=== PATIENT | female | born 1935 | race Caucasian/White ===

== ENCOUNTER 2018-04-16 16:53 | Emergency (ER) | payer MEDICARE, OTHER ==
[~2018-04-16] VITALS: Ht 165.1 cm; Wt 65.9 kg
[2018-04-16 17:49] LABS: BASOPHILS % (AUTO) 0.1 % (0-1); EOSINOPHILS % (AUTO) 0.1 % (0-6); HEMATOCRIT 40.7 % (35.0-45.0); HEMOGLOBIN 13.4 g/dl (12.0-16.0); LYMPHOCYTES # (AUTO) 0.8 X10'3 (1.1-4.8); LYMPHOCYTES % (AUTO) 7.6 % (21-51); MEAN CORPUSCULAR HEMOGLOBIN 28.2 PG (27.0-31.0); MEAN CORPUSCULAR HGB CONC 32.8 % (33.0-36.5); MEAN CORPUSCULAR VOLUME 85.8 FL (78-98); MEAN PLATELET VOLUME 8.3 FL (7.4-10.4); MONOCYTES # (AUTO) 0.4 X10'3 (0-0.9); NEUTROPHILS # (AUTO) 8.8 X10'3 (1.8-7.7); NEUTROPHILS % (AUTO) 88.2 % (42-75); PLATELET COUNT 224 X10'3 (140-440); RED BLOOD COUNT 4.74 X10'6 (4.20-5.60); RED CELL DISTRIBUTION WIDTH 13.9 % (11.5-14.5)
[2018-04-16 17:51] LABS: CLARITY,URINE CLOUDY (Clear); COLOR,URINE YELLOW (Yellow); GLUCOSE, URINE NEGATIVE (Neg); KETONES,URINE TRACE mg/dl (Neg); LEUKOCYTE ESTERASE ,URINE MODERATE (Neg); NITRITES, URINE POSITIVE (Neg); OCCULT BLOOD,URINE LARGE (Neg); PROTEIN,URINE >=300 mg/dl (Neg); UA COLLECTION TYPE CLN CATCH MIDSTREAM
[2018-04-16] MEDS ORDERED: normal saline 1000ML IV soln IVB ONE (17:55)
[2018-04-16] MEDS ORDERED: ondansetron/PF 4mg/2ml inj IV ONE (17:55)
[2018-04-16 17:58] LABS: PROTHROMBIN TIME 10.1 SECONDS (9.0-12.0)
[2018-04-16 18:01] LABS: BACTERIA,URINE 4+ /HPF (Neg); MUCUS STRANDS NONE SEEN /LPF (Neg); RBC,URINE 20-50 /HPF (0-2); RENAL CELLS, URINE FEW /HPF; SQUAMOUS EPITHELIAL CELL,UR FEW /LPF (FEW); TRANSITIONAL EPI CELLS,URINE FEW /HPF; WBC CLUMPS,URINE MANY /HPF (NEGATIVE); WBC,URINE TNTC /HPF (0-4)
[2018-04-16 18:10] LABS: TOTAL CELLS COUNTED 100
[2018-04-16 18:11] LABS: PLATELET ESTIMATE NORMAL
[2018-04-16] MEDS ORDERED: CefTRIAXone 2gm/D5W 50ml 50 ML IV ONE (18:15)
[2018-04-16 18:16] LABS: ALANINE AMINOTRANSFERASE 48 U/L (12-78); ALBUMIN/GLOBULIN RATIO 0.7 (1.1-1.5); ALKALINE PHOSPHATASE 87 IU/L (46-116); AMYLASE 33 U/L (25-115); ANION GAP 9 (8-16); ASPARTATE AMINO TRANSFERASE 63 U/L (10-37); BILIRUBIN,TOTAL 0.9 MG/DL (0.1-1.0); BLOOD UREA NITROGEN 16 MG/DL (7-18); BUN/CREATININE RATIO 12.9 (6.6-38.0); CHLORIDE 100 MMOL/L (99-107); CREATININE 1.24 MG/DL (0.40-0.90); GLUCOSE 131 MG/DL (70-104); LIPASE 73 U/L (73-393); POTASSIUM 3.8 MMOL/L (3.5-5.1); SODIUM 136 MMOL/L (135-145); TOTAL CARBON DIOXIDE 26.8 MMOL/L (24-32); TOTAL PROTEIN 7.4 G/DL (6.4-8.2); eGFR 41 ML/MIN
[2018-04-16] MEDS ORDERED: DIPH25CA83 PO (18:20)
[2018-04-16] MEDS ORDERED: MULT-38 PO (18:20)
[2018-04-16] MEDS ORDERED: CLOP75TA35 PO (18:20)
[2018-04-16] MEDS ORDERED: DOXE10CA2 PO (18:20)
[2018-04-16] MEDS ORDERED: SYN0.088T PO (18:20)
[2018-04-16] MEDS ORDERED: MAGN500C16 PO (18:20)
[2018-04-16] MEDS ORDERED: EZET10TA14 PO (18:20)
[2018-04-16] MEDS ORDERED: CHOL2000 PO (18:20)
[2018-04-16] MEDS ORDERED: ATOR20TA PO (18:20)
[2018-04-16] MEDS ORDERED: SERT25TA PO (18:20)
[2018-04-16] MEDS ORDERED: nitrofuran/nitrofuran macrocrysal 100 MG capsule PO ONE (18:50)
[2018-04-16] MEDS ORDERED: NITR100C6 PO (18:51)
[2018-04-16] MEDS ORDERED: ONDA4TAB6 PO (18:51)
[2018-04-16 19:43] VITALS: BP 139/65
== END 2018-04-16 20:06 | disposition home or self-care (01) ==
LOC: ER 16:54
DX: E86.0 Dehydration (principal); N39.0 Urinary tract infection, site not specified; R11.2 Nausea with vomiting, unspecified; E78.00 Pure hypercholesterolemia, unspecified; Z86.73 Personal history of transient ischemic attack (TIA), and cerebral infarction without residual deficits; Z90.89 Acquired absence of other organs; Z98.890 Other specified postprocedural states; Z79.01 Long term (current) use of anticoagulants; Z79.899 Other long term (current) drug therapy
CPT/HCPCS: 36415; 80053; 81001; 82150; 83605; 83690; 84145; 85025; 85610; 87040; 87077; 87088; 87186; 96361; 96365; 96375; 99284; J0696; J2405; J7030; 96374

== ENCOUNTER 2018-08-01 16:46 | Inpatient (IN) | payer MEDICARE, OTHER ==
[~2018-08-01] VITALS: Ht 165.1 cm; Wt 69.7 kg
[~2018-08-01 16:46] MED LIST: ATOR20TA PO; CHOL2000 PO; CLOP75TA35 PO; DIPH25CA83 PO; DOXE10CA2 PO; EZET10TA14 PO; MAGN500C16 PO; MULT-38 PO; NITR100C6 PO; ONDA4TAB6 PO; SERT25TA PO; SYN0.088T PO
[2018-08-01 17:22] LABS: BASOPHILS % (AUTO) 0.4 % (0-1); EOSINOPHILS # (AUTO) 0.3 X10'3 (0-0.9); EOSINOPHILS % (AUTO) 3.3 % (0-6); HEMOGLOBIN 11.9 g/dl (12.0-16.0); LYMPHOCYTES % (AUTO) 26.6 % (21-51); MEAN CORPUSCULAR HEMOGLOBIN 27.1 PG (27.0-31.0); MEAN CORPUSCULAR HGB CONC 32.1 % (33.0-36.5); MEAN CORPUSCULAR VOLUME 84.3 FL (78-98); MEAN PLATELET VOLUME 8.3 FL (7.4-10.4); MONOCYTES # (AUTO) 0.6 X10'3 (0-0.9); MONOCYTES % (AUTO) 8.3 % (2-12); NEUTROPHILS # (AUTO) 4.7 X10'3 (1.8-7.7); NEUTROPHILS % (AUTO) 61.4 % (42-75); PLATELET COUNT 280 X10'3 (140-440); RED BLOOD COUNT 4.39 X10'6 (4.20-5.60); RED CELL DISTRIBUTION WIDTH 14.5 % (11.5-14.5); WHITE BLOOD COUNT 7.7 X10'3 (4.5-11.0)
[2018-08-01 17:39] LABS: ALANINE AMINOTRANSFERASE 49 U/L (12-78); ALBUMIN 3.6 G/DL (3.4-5.0); ALKALINE PHOSPHATASE 57 IU/L (46-116); ANION GAP 10 (8-16); ASPARTATE AMINO TRANSFERASE 23 U/L (10-37); BILIRUBIN,TOTAL 0.4 MG/DL (0.1-1.0); BLOOD UREA NITROGEN 24 MG/DL (7-18); BUN/CREATININE RATIO 23.5 (6.6-38.0); CALCIUM 9.1 MG/DL (8.5-10.1); CHLORIDE 107 MMOL/L (99-107); CREATININE 1.02 MG/DL (0.40-0.90); GLUCOSE 113 MG/DL (70-104); POTASSIUM 4.1 MMOL/L (3.5-5.1); SODIUM 142 MMOL/L (135-145); TOTAL CARBON DIOXIDE 25.3 MMOL/L (24-32); TOTAL PROTEIN 7.1 G/DL (6.4-8.2); eGFR 52 ML/MIN
[2018-08-01 17:57] LABS: PARTIAL THROMBOPLASTIN TIME 25 SECONDS (22-32); PROTHROMBIN TIME 10.1 SECONDS (9.0-12.0)
[2018-08-01] MEDS ORDERED: ondansetron/PF 4mg/2ml inj IV ONE (18:15)
[2018-08-01] MEDS ORDERED: DEXA0.5E6 (18:27)
[2018-08-01 18:43] LABS: MAGNESIUM 2.2 MG/DL (1.5-2.4)
[2018-08-01] MEDS: normal saline 1000ml 1,000 ML IV SCH (23:12)
[2018-08-01] MEDS ORDERED: mag hydrox/Alum hydrox/simeth 30ml oral suspension PO PRN (23:15)
[2018-08-01] MEDS ORDERED: magnesium hydroxide 30ml (MOM) UD suspension PO PRN (23:15)
[2018-08-01] MEDS ORDERED: acetaminophen 325mg tablet PO PRN ×2 (23:15)
[2018-08-01] MEDS ORDERED: ondansetron/PF 4mg/2ml inj IV PRN (23:15)
[2018-08-02] VITALS (13 sets, daily range): BP systolic 128–183; BP diastolic 43–72
[2018-08-02 06:08] LABS: BASOPHILS % (AUTO) 0.3 % (0-1); EOSINOPHILS # (AUTO) 0.2 X10'3 (0-0.9); EOSINOPHILS % (AUTO) 3.5 % (0-6); HEMATOCRIT 32.6 % (35.0-45.0); LYMPHOCYTES # (AUTO) 2.3 X10'3 (1.1-4.8); LYMPHOCYTES % (AUTO) 36.8 % (21-51); MEAN CORPUSCULAR HEMOGLOBIN 28.3 PG (27.0-31.0); MEAN CORPUSCULAR HGB CONC 33.6 % (33.0-36.5); MEAN PLATELET VOLUME 8.3 FL (7.4-10.4); MONOCYTES # (AUTO) 0.5 X10'3 (0-0.9); MONOCYTES % (AUTO) 8.6 % (2-12); NEUTROPHILS # (AUTO) 3.2 X10'3 (1.8-7.7); NEUTROPHILS % (AUTO) 50.8 % (42-75); PLATELET COUNT 236 X10'3 (140-440); RED BLOOD COUNT 3.88 X10'6 (4.20-5.60); RED CELL DISTRIBUTION WIDTH 14.2 % (11.5-14.5); WHITE BLOOD COUNT 6.4 X10'3 (4.5-11.0)
[2018-08-02 06:18] LABS: ALBUMIN 3.1 G/DL (3.4-5.0); ANION GAP 8 (8-16); BLOOD UREA NITROGEN 22 MG/DL (7-18); CALCIUM 8.4 MG/DL (8.5-10.1); CHLORIDE 111 MMOL/L (99-107); CREATININE 1.05 MG/DL (0.40-0.90); GLUCOSE 92 MG/DL (70-104); POTASSIUM 4.2 MMOL/L (3.5-5.1); SODIUM 145 MMOL/L (135-145); eGFR 50 ML/MIN
[2018-08-02] MEDS ORDERED: ceFAZolin inj. 2,000 MG in dextrose 5%-water 50ml 50 ML IV ONE (06:50)
[2018-08-02] MEDS: ezetimibe 10mg tablet PO SCH (08:59)
[2018-08-02] MEDS: sertraline 50mg tablet PO SCH (09:00)
[2018-08-02] MEDS: levoTHYROXINE 25mcg tablet PO SCH (09:00)
[2018-08-02] MEDS: levoTHYROXINE 112mcg tablet PO SCH (09:00)
[2018-08-02] MEDS: normal saline 1000ml 1,000 ML IV SCH ×2 (09:02→19:12)
[2018-08-02] MEDS ORDERED: ceFAZolin 1GM/D5W- ADD-VANTAGE 50 ML IV ONE (17:57)
[2018-08-02] MEDS ORDERED: ceFAZolin 1000mg inj ONE (17:58)
[2018-08-02] MEDS ORDERED: fentaNYL/PF 50MCG/1 ML 2ML syringe ONE (17:58)
[2018-08-02] MEDS ORDERED: midazolam 2 mg/2 ml injection ONE (17:58)
[2018-08-02] MEDS ORDERED: LIDOcaine 1.5% w/epinephrine 1:200,000 5ml ampul ONE ×4 (17:58→18:32)
[2018-08-02] MEDS ORDERED: HYDROcodone/acetaminophen 5mg/325mg tablet PO PRN (20:15)
[2018-08-02] MEDS ORDERED: HYDROcodone/acetaminophen 10/325mg tab PO PRN (20:15)
[2018-08-02] MEDS ORDERED: doxepin 10mg capsule PO SCH (21:00)
[2018-08-03] MEDS: ceFAZolin 1GM/D5W- ADD-VANTAGE 50 ML IV SCH ×2 (00:49→07:50)
[2018-08-03 03:00] VITALS: BP 142/88
[2018-08-03] MEDS: normal saline 1000ml 1,000 ML IV SCH (05:13)
[2018-08-03 05:35] LABS: BASOPHILS % (AUTO) 0.3 % (0-1); EOSINOPHILS # (AUTO) 0.2 X10'3 (0-0.9); EOSINOPHILS % (AUTO) 2.5 % (0-6); HEMATOCRIT 31.7 % (35.0-45.0); HEMOGLOBIN 10.5 g/dl (12.0-16.0); LYMPHOCYTES # (AUTO) 1.3 X10'3 (1.1-4.8); LYMPHOCYTES % (AUTO) 18.9 % (21-51); MEAN CORPUSCULAR HGB CONC 33.2 % (33.0-36.5); MEAN CORPUSCULAR VOLUME 84.3 FL (78-98); MEAN PLATELET VOLUME 8.3 FL (7.4-10.4); MONOCYTES # (AUTO) 0.6 X10'3 (0-0.9); MONOCYTES % (AUTO) 7.9 % (2-12); NEUTROPHILS % (AUTO) 70.4 % (42-75); PLATELET COUNT 224 X10'3 (140-440); RED BLOOD COUNT 3.76 X10'6 (4.20-5.60); RED CELL DISTRIBUTION WIDTH 14.7 % (11.5-14.5); WHITE BLOOD COUNT 7.1 X10'3 (4.5-11.0)
[2018-08-03 05:55] LABS: ALBUMIN 2.9 G/DL (3.4-5.0); ANION GAP 7 (8-16); BLOOD UREA NITROGEN 18 MG/DL (7-18); BUN/CREATININE RATIO 19.1 (6.6-38.0); CALCIUM 8.2 MG/DL (8.5-10.1); CHLORIDE 112 MMOL/L (99-107); CREATININE 0.94 MG/DL (0.40-0.90); GLUCOSE 99 MG/DL (70-104); POTASSIUM 4.1 MMOL/L (3.5-5.1); SODIUM 145 MMOL/L (135-145); TOTAL CARBON DIOXIDE 25.7 MMOL/L (24-32); eGFR 57 ML/MIN
[2018-08-03 06:00] VITALS: BP 171/67
[2018-08-03] MEDS ORDERED: CEPH500C5 PO (06:23)
[2018-08-03] MEDS: levoTHYROXINE 112mcg tablet PO SCH (07:51)
[2018-08-03] MEDS: sertraline 50mg tablet PO SCH (07:51)
[2018-08-03] MEDS: levoTHYROXINE 25mcg tablet PO SCH (07:51)
[2018-08-03] MEDS: ezetimibe 10mg tablet PO SCH (07:51)
[2018-08-03] MEDS ORDERED: clopidogrel 75mg tablet PO SCH (08:00)
[2018-08-03 11:00] VITALS: BP 146/65
== END 2018-08-03 14:05 | disposition home or self-care (01) | DRG 244 ==
LOC: ER 16:46 → ED HOLD 23:12 → CMPBEDREQ 08-02 00:20 → PCU 3S 08-02 01:00
PROVIDERS: ADMIT Internal Medicine; ATTEND Internal Medicine
PROC: 0JH606Z Insertion of Pacemaker, Dual Chamber into Chest Subcutaneous Tissue and Fascia, Open Approach (ICD-10-PCS; principal; 2018-08-02)
PROC: 02HK3JZ Insertion of Pacemaker Lead into Right Ventricle, Percutaneous Approach (ICD-10-PCS; 2018-08-02)
PROC: 02H63JZ Insertion of Pacemaker Lead into Right Atrium, Percutaneous Approach (ICD-10-PCS; 2018-08-02)
DX: I44.2 Atrioventricular block, complete (principal); R60.0 Localized edema; E03.9 Hypothyroidism, unspecified; E86.0 Dehydration; E78.00 Pure hypercholesterolemia, unspecified; E78.5 Hyperlipidemia, unspecified; F32.9 Major depressive disorder, single episode, unspecified; I10 Essential (primary) hypertension; I45.89 Other specified conduction disorders; Z66 Do not resuscitate; M79.604 Pain in right leg; R00.1 Bradycardia, unspecified; Z96.651 Presence of right artificial knee joint; Z90.710 Acquired absence of both cervix and uterus; Z79.899 Other long term (current) drug therapy; Z79.890 Hormone replacement therapy; Z86.73 Personal history of transient ischemic attack (TIA), and cerebral infarction without residual deficits; Z87.891 Personal history of nicotine dependence
CPT/HCPCS: 33208; 36415; 71045; 80048; 80053; 82948; 83735; 83880; 84443; 84484; 85025; 85610; 85730; 87070; 93005; 93306; 93971; 96374; 97116; 97161; 97530; 99152; 99153; 99285; A4565; A4620; C1785; C1898; G0378; J0690; J2250; J2405; J3010; J3490; J7030; J7060

== ENCOUNTER 2018-08-05 06:55 | Emergency (ER) | payer MEDICARE, OTHER ==
[~2018-08-05] VITALS: Ht 165.1 cm; Wt 61.4 kg
[~2018-08-05 06:55] MED LIST changes: +CEPH500C5 PO; +DEXA0.5E6; -DIPH25CA83 PO; -NITR100C6 PO; -ONDA4TAB6 PO
[2018-08-05] MEDS ORDERED: CEPH-572 PO (07:26)
[2018-08-05] MEDS ORDERED: LIDOcaine 1.5% w/epinephrine 1:200,000 5ml ampul IJ ONE (07:30)
[2018-08-05] MEDS ORDERED: LIDOcaine 1% w/epiNEPHrine 1:200,000 30ml vial IJ ONE (07:35)
[2018-08-05] MEDS ORDERED: CefTRIAXone 1000mg IM Kit (w/lidocaine diluent) IM ONE (07:50)
[2018-08-05 08:11] VITALS: BP 158/89
== END 2018-08-05 08:30 | disposition home or self-care (01) ==
LOC: ER 06:55
DX: I97.618 Postprocedural hemorrhage of a circulatory system organ or structure following other circulatory system procedure (principal); T81.31XA Disruption of external operation (surgical) wound, not elsewhere classified, initial encounter; E78.00 Pure hypercholesterolemia, unspecified; I10 Essential (primary) hypertension; E03.9 Hypothyroidism, unspecified; Z87.891 Personal history of nicotine dependence; Z90.710 Acquired absence of both cervix and uterus; Z98.890 Other specified postprocedural states; Z95.0 Presence of cardiac pacemaker; Z86.73 Personal history of transient ischemic attack (TIA), and cerebral infarction without residual deficits; Z79.899 Other long term (current) drug therapy; Y92.9 Unspecified place or not applicable
CPT/HCPCS: 12020; 96372; 99284; J3490; 99283

== ENCOUNTER 2019-05-19 10:24 | Emergency (ER) | payer MEDICARE, OTHER ==
[~2019-05-19] VITALS: Ht 165.1 cm; Wt 65.8 kg
[~2019-05-19 10:24] MED LIST changes: +CEPH-572 PO; -CEPH500C5 PO; -EZET10TA14 PO; +EZET10TA21 PO
[2019-05-19] MEDS ORDERED: TETanus/Pertussis (Acell)/Diphther VAC/PF (Tdap-Adult) 0.5ml syringe IM ONE (11:35)
[2019-05-19] MEDS ORDERED: LIDOcaine 1% W/epiNEPHrine 1:100,000 20ml vial IJ ONE (11:35)
[2019-05-19 12:21] VITALS: BP 148/72
[2019-05-19] MEDS ORDERED: TRAM50TA2 PO (13:06)
== END 2019-05-19 13:40 | disposition home or self-care (01) ==
LOC: ER 10:25
DX: S02.31XA Fracture of orbital floor, right side, initial encounter for closed fracture (principal); S01.81XA Laceration without foreign body of other part of head, initial encounter; S01.111A Laceration without foreign body of right eyelid and periocular area, initial encounter; S61.411A Laceration without foreign body of right hand, initial encounter; S80.01XA Contusion of right knee, initial encounter; E78.00 Pure hypercholesterolemia, unspecified; I10 Essential (primary) hypertension; F32.9 Major depressive disorder, single episode, unspecified; E03.9 Hypothyroidism, unspecified; Z86.73 Personal history of transient ischemic attack (TIA), and cerebral infarction without residual deficits; Z90.710 Acquired absence of both cervix and uterus; Z98.890 Other specified postprocedural states; W18.09XA Striking against other object with subsequent fall, initial encounter; Y93.89 Activity, other specified; Y92.89 Other specified places as the place of occurrence of the external cause; Y99.8 Other external cause status
CPT/HCPCS: 12001; 12013; 70450; 70486; 72125; 73130; 73564; 90471; 93005; 99284

== ENCOUNTER 2019-07-11 13:29 | Emergency (ER) | payer MEDICARE, OTHER ==
[~2019-07-11] VITALS: Ht 165.1 cm; Wt 55.8 kg
[2019-07-11 14:20] VITALS: BP 141/85
== END 2019-07-11 14:48 | disposition home or self-care (01) ==
LOC: ER 13:30
DX: S00.83XA Contusion of other part of head, initial encounter (principal); S00.12XA Contusion of left eyelid and periocular area, initial encounter; E78.00 Pure hypercholesterolemia, unspecified; I10 Essential (primary) hypertension; F32.9 Major depressive disorder, single episode, unspecified; Z90.710 Acquired absence of both cervix and uterus; Z90.89 Acquired absence of other organs; Z98.890 Other specified postprocedural states; Z79.899 Other long term (current) drug therapy; W18.39XA Other fall on same level, initial encounter; Y93.89 Activity, other specified; Y92.89 Other specified places as the place of occurrence of the external cause; Y99.8 Other external cause status
CPT/HCPCS: 70450; 99284

== ENCOUNTER 2023-04-13 14:26 | Outpatient (CLI) | payer MEDICARE ==
[~2023-04-13 14:26] MED LIST changes: +CLOP75TA34 PO; -CLOP75TA35 PO; -EZET10TA21 PO; +EZET10TA6 PO; -MAGN500C16 PO; +MAGN500C4 PO
== END 2023-04-13 23:59 | disposition home or self-care (01) ==
LOC: RAD 14:26
PROVIDERS: ATTEND Family Medicine
DX: R13.14 Dysphagia, pharyngoesophageal phase (principal); R49.0 Dysphonia; K21.9 Gastro-esophageal reflux disease without esophagitis
CPT/HCPCS: 74230